=== PATIENT | female | born 1985 | race African-American/Black ===

== ENCOUNTER 2016-08-12 22:58 | Emergency (ER) | payer BC ==
[~2016-08-12] VITALS: Ht 162.6 cm; Wt 114.8 kg
[2016-08-12 23:19] VITALS: BP 154/71
[2016-08-12] MEDS ORDERED: NEOMY/BACITR/POLYMYXIN OINT PACKET. TP ONE (23:30)
[2016-08-12] MEDS ORDERED: TRAM50TA PO (23:31)
[2016-08-12] MEDS ORDERED: CEPH-264 PO (23:31)
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
== END 2016-08-12 23:45 | disposition home or self-care (01) ==
LOC: ER 22:58
DX: T25.222A Burn of second degree of left foot, initial encounter (principal); T25.221A Burn of second degree of right foot, initial encounter; X11.8XXA Contact with other hot tap-water, initial encounter; Y93.89 Activity, other specified; Y99.8 Other external cause status; Y92.89 Other specified places as the place of occurrence of the external cause
CPT/HCPCS: 16020; 99284-25